=== PATIENT | female | born 1980 | race Caucasian/White ===

== ENCOUNTER 2019-01-04 07:45 | Emergency (ER) | payer OTHER, SELFPAY ==
[2019-01-04 07:46] VITALS: BP 158/87; PULSE 92; RESP 17; TEMP 36.5; O2SAT 98; BMI 40.3
--- NOTE | 2019-01-04 08:04 | RAD_ITS ---
STUDY: X-RAY - RIGHT HAND, ATTENTION INDEX FINGER REASON FOR EXAM: Female, 38 years old. Pain following injury. TECHNIQUE: 3 view(s) of the finger were obtained. COMPARISON: None. FINDINGS: Normal metacarpal head. Normal metacarpophalangeal joint. Normal proximal phalanx. Normal middle phalanx. Normal distal phalanx. Normal proximal interphalangeal joint. Normal distal interphalangeal joint. A thin oblique foreign body is seen in the soft tissues overlying the tuft of the distal phalanx of the index finger along the ulnar aspect. RAD/Finger(s) Min 2 Views IMPRESSION: Small radiopaque foreign body as described. Electronically Signed: Earnest Morataya, at 8:49 EDT , Service support ,
--- NOTE | 2019-01-04 08:17 | ED.DCSUM_ITS ---
- ER Visit Summary Date of Service: 01/04/19 Chief Complaint: Right index finger injury History of Present Illness: The patient is a 38 F who presents with injury to her right index finger that occurred earlier this morning. Patient was at work when her finger was crushed between a suction container and IV pole. Patient was able to finish her shift at work and then came to the emergency department for evaluation. Patient states the pain is over the distal phalanx of the right index finger. Patient states her pain is worse with hanging in a dependent position and with palpation. Patient denies any paresthesias or weakness. Patient states her pain improves with elevation. Physical Examination: Vital signs are stable. Patient is afebrile. Patient is in no acute distress. Musculoskeletal exam reveals tenderness, edema, and mild ecchymosis over the distal phalanx of the right index finger. There is no bony crepitance or step-off. There is no deformity noted. Range of motion was slightly limited in flexion of the DIP joint secondary to pain. Sensation was intact light touch in all digits. Capillary refill is less than 2 seconds in all digits. Test Results: X-rays of the right index finger were obtained. There is a foreign body noted in the soft tissues of the distal phalanx of the right index finger. There is no acute fracture. Emergency Department Course and Treatment: Patient was placed in AlumaFoam splint. Patient was instructed to ice and elevate the right index finger. Patient was instructed to follow-up with her primary care physician or [facility] in 7 to 10 days. Patient understood and was agreeable with plan. All questions were answered. Disposition: Discharge home Impression: 1. Foreign body right index finger 2. Crush injury right index finger This note was generated with [employer] software. It may contain incorrect words, spelling, and punctuation that were not noted in review of the chart prior to signing ED Disposition - Plan for ED Patient: Disposition: Home or Assisted Living Diagnosis: Superficial foreign body of right index finger, initial encounter, Crushing injury of right index finger, initial encounter Instructions: CRUSH INJURY, Hand/Finger, FOREIGN BODY, Soft Tissue [Removed] Referrals: NOT,DEFINED [NON-STAFF] - [facility] [GROUP OF PHYSICIANS] - 5-7 Days
[2019-01-04] MEDS: Diphth,Pertuss(Acell),Tet Vac 0.5 ML Vial IM (09:14)
[2019-01-04 09:18] VITALS: BP 127/94; PULSE 80; RESP 16
[2019-01-04] MEDS: BACITRACIN 15 GM Tube 1 APPLIC TOPICAL (10:57)
== END 2019-01-04 10:45 | disposition home or self-care (01) ==
PROVIDERS: Emergency Provider Emergency Medicine
DX: S60.450A Superficial foreign body of right index finger, initial encounter (principal); X58.XXXA Exposure to other specified factors, initial encounter; Y93.89 Activity, other specified; Y92.239 Unspecified place in hospital as the place of occurrence of the external cause; Y99.0 Civilian activity done for income or pay
CPT/HCPCS: 73140; 90715; 99283

== ENCOUNTER 2019-03-19 20:16 | Emergency (ER) | payer OTHER, SELFPAY ==
[2019-03-19 20:16] VITALS: BP 149/84; PULSE 99; RESP 16; TEMP 36.4; O2SAT 100; BMI 39.4
--- NOTE | 2019-03-19 21:28 | ED.DCSUM_ITS ---
- ER Visit Summary Date of Service: 03/19/19 Chief Complaint: Sore throat History of Present Illness: The patient is a 38 F presenting with sore throat. Patient states this started today. She has painful swallowing but no difficulty swallowing. She has had subjective fever. She took Tylenol prior to arrival. She denies rhinorrhea, cough, other complaints. She has had strep throat in the past and feels similar. Physical Examination: Vitals are stable. Patient is afebrile. Alert no acute distress. HEENT exam pharyngeal erythema, no exudate. Uvula is midline. Neck is supple. No meningismus Lungs are clear and equal bilaterally. Heart is regular rate and rhythm. Extremities are unremarkable. Skin is warm and dry. No rash No focal neurologic deficit. Remainder of exam is unremarkable. Emergency Department Course and Treatment: Rapid strep is negative. Patient was given Decadron. Advised to follow-up with Dr. Melendez on-call for no doctor. Advised return to the ED for worsening complaints. Disposition: Discharge home Impression: Pharyngitis This note was generated with [employer] dictation software. It may contain incorrect words, spelling, and punctuation that were not noted in review of the chart prior to signing ED Disposition - Plan for ED Patient: Instructions: PHARYNGITIS, Viral Referrals: Obi Melendez DO [NON CLINICAL AFFILIATE] -
--- NOTE | 2019-03-19 22:17 | ED.DEP ---
ED Disposition - Plan for ED Patient: Instructions: PHARYNGITIS, Viral Referrals: Obi Melendez DO [NON CLINICAL AFFILIATE] -
[2019-03-19] MEDS: dexAMETHasone 4 MG Tablet PO (22:28)
[2019-03-19 22:33] VITALS: RESP 16
--- NOTE | 2019-03-19 22:33 | ED.RN ---
REVIEWED D/C INSTRUCTIONS, FOLLOW UP CARE, AND S/S THAT WOULD WARRANT A RETURN TO THE ED WITH PT. PT VERBALIZED AN UNDERSTANDING AND DENIES FURTHER QUESTIONS FOR THIS RN. PT SKIN P/W/D, RESP EVEN AND UNLABORED, PT A&O X 3, NO DISTRESS NOTED. PT AMBULATED OUT OF ED, GAIT STEADY.
== END 2019-03-19 22:35 | disposition home or self-care (01) ==
PROVIDERS: Emergency Provider Emergency Medicine
DX: J02.9 Acute pharyngitis, unspecified (principal)
CPT/HCPCS: 87880; 99283

== ENCOUNTER → 2020-04-20 09:06 | Outpatient (CLI) | payer OTHER, SELFPAY ==
--- NOTE | 2020-04-20 09:07 | RAD_ITS ---
STUDY: X-RAY - RIGHT FOOT CLINICAL: Female, 39 years old. Right lateral side foot pain TECHNIQUE: 3 view(s) of the foot. COMPARISON: None. FINDINGS: Normal talus, calcaneus, and tarsal bones. Normal visualized subtalar, talonavicular, calcaneocuboid, tarsal and tarsometatarsal articulations. There is flattening of the head of the third metatarsal most likely secondary to old injury. Normal metatarsophalangeal joint of the great toe. Normal tibial and fibular sesamoid bones. Normal interphalangeal joint of the great toe. Normal phalanges of the great toe. Normal second through fifth metatarsophalangeal joints. Normal interphalangeal joints and phalanges of the lesser toes. The soft tissue structures are unremarkable. RAD/Foot min 3 Views IMPRESSION: There is flattening of the head of the third metatarsal most likely secondary to an old injury. Electronically Signed: Earnest Morataya, at 9:52 EST , Service support ,
== END ==
PROVIDERS: Referring Provider Physician Assistant Surgical; Visit Provider Physician Assistant Surgical
DX: S96.911A Strain of unspecified muscle and tendon at ankle and foot level, right foot, initial encounter (principal)
CPT/HCPCS: 73630

== ENCOUNTER 2021-04-10 12:46 | Outpatient (CLI) | payer OTHER, SELFPAY ==
[2021-04-10 13:03] VITALS: BP 134/86; PULSE 78; RESP 16; TEMP 36.8; O2SAT 99; BMI 41.1
[2021-04-10 14:05] VITALS: BP 94/67; PULSE 72; RESP 16; TEMP 36.6; O2SAT 100
[2021-04-10 15:06] VITALS: BP 130/89; PULSE 77; RESP 16; TEMP 37.1; O2SAT 100
== END 2021-04-10 15:07 | disposition home or self-care (01) ==
LOC: MS3OUT 12:46 → MS3 12:47
PROVIDERS: Referring Provider Nurse Practitioner Adult Health; Visit Provider Nurse Practitioner Adult Health
DX: Z23 Encounter for immunization (principal); U07.1 COVID-19
CPT/HCPCS: J7050; M0245; Q0245

== ENCOUNTER 2021-09-27 03:49 | Emergency (ER) | payer OTHER, SELFPAY ==
[2021-09-27 03:50] VITALS: BP 185/95; PULSE 101; RESP 18; TEMP 37; O2SAT 98; BMI 44.1
--- NOTE | 2021-09-27 03:58 | EKG12_ITS ---
Test Reason : SOB Blood Pressure : / mmHG Vent. Rate : 082 BPM Atrial Rate : 082 BPM P-R Int : 142 ms QRS Dur : 076 ms QT Int : 370 ms P-R-T Axes : 060 015 036 degrees QTc Int : 432 ms Normal sinus rhythm Normal ECG Confirmed by MARVEL MCLEOD, LARA ([id number]), features editor EMMANUEL ORR ([id number]) on 10/01/2021 8:51:04 AM Referred By: EDMAR Confirmed By:LARA GRIER MD
--- NOTE | 2021-09-27 03:58 | RAD_ITS ---
STUDY: X-RAY CHEST REASON FOR EXAM: Female, 41 years old. sob TECHNIQUE: AP portable at 4:20 AM. COMPARISON: None. FINDINGS: LUNGS: No consolidation. No pneumothorax. MEDIASTINUM: Prominent right paratracheal soft tissue likely vascular exaggerated by patient rotation. CARDIAC SILHOUETTE: Not enlarged. BONES AND SOFT TISSUES: No acute abnormalities. RAD/Chest 1 View (Portable) IMPRESSION: Negative portable chest x-ray. Electronically Signed: Michelle Anderson MD at 4:51 EDT ,
--- NOTE | 2021-09-27 03:59 | EDS_ITS ---
HPI History of Present Illness Chief Complaint: Cough Informant: patient Onset/Context/Timing Onset: Weeks Context: Gradual Onset Current Severity: Moderate Maximum Severity: Moderate Narrative Narrative: Patient presents secondary to generalized fatigue along with chest heaviness, shortness of breath, cough for the past 2 weeks. She will randomly have episodes of nausea and vomiting as well. No fever or chills. She had COVID in April 2021. She states since that time she feels that she gets sick very easily. She did test negative for COVID earlier this week. [facility] Medical History History of COVID-19 Allergy/AdvReac Type Severity Reaction Status Date / Time No Known Allergies Allergy Verified 05/01/21 17:25 Family History Mother Breast cancer Thyroid disorder Father Hypertension Surgical History plantar fasciotomy Social History Smoking Status: Never smoker ROS ROS ED Constitutional Constitutional ED: Denies chills or fever(s) Eyes Eyes: Denies change in vision ENT ENT ED: Denies sore throat Cardiovascular Cardiovascular: Reports chest pain and other Details: Chest heaviness Respiratory/Chest Respiratory/Chest: Reports cough, dyspnea and sputum Gastrointestinal Gastrointestinal: Reports nausea and vomiting; Denies abdominal pain or diarrhea Genitourinary Genitourinary ED: Denies dysuria Musculoskeletal Musculoskeletal: Denies back pain Integumentary Denies rash Neurologic Neurologic: Denies headache(s) Allergic/Immunologic Allergic/Immunologic ED: Denies urticaria EXAM Physical Exam Const Vital Signs: 09/27/21 03:50 09/27/21 05:28 Temperature 98.6 F Temperature Source Oral Pulse Rate 101 H 88 Respiratory Rate 18 18 Blood Pressure 185/95 H 141/80 H Blood Pressure Mean 125 100 Pulse Ox 98 99 Oxygen Delivery Method Room Air Room Air Positive well nourished and well developed General Appearance ED: well developed HEENT Reports moist mucous membranes Eyes PERRL and EOMs intact bilaterally Neck supple Chest Wall inspection of chest normal and palpation of chest normal Resp normal respiratory effort and clear to auscultation bilaterally Cardio regular rate and regular rhythm GI non-tender Auscultation: hypoactive bowel sounds Palpation: soft Extremity normal to inspection Neuro oriented x3 Sensorium / Orientation: alert Psych mental status grossly normal Skin no rashes or lesions noted MDM MDM MDM Narrative Medical decision making narrative: 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 EKG, chest x-ray, lab work obtained. Lab Data Attestation: I reviewed the patient's lab results. Labs: Laboratory Results - last 24 hr 09/27/21 09/27/21 09/27/21 03:50 03:50 03:50 WBC 9.4 RBC 4.56 Hgb 13.5 Hct 40.5 MCV 88.8 MCH 29.6 MCHC 33.3 RDW Std Deviation 42.5 RDW Coeff of Shanique 13.2 Plt Count 342 MPV 10.4 Immature Gran % (Auto) 0.400 Neut % (Auto) 58.4 Lymph % (Auto) 33.6 [place] % (Auto) 6.1 Eos % (Auto) 1.2 Baso % (Auto) 0.3 Absolute Neuts (auto) 5.5 Absolute Lymphs (auto) 3.17 Nucleated RBC % 0 D-Dimer Quant (PE/DVT) 0.58 H* Sodium 138 Potassium 3.3 L Chloride 104 Carbon Dioxide 28.0 Anion Gap 6 BUN 10 Creatinine 1.01 Estim Creat Clear Calc 63.94 Est GFR (MDRD) Af Amer 78 Est GFR (MDRD) Non-Af 65 BUN/Creatinine Ratio 9.9 L Glucose 128 H Calcium 8.6 Troponin I High Sens 4 B-Natriuretic Peptide Serum , Qual 09/27/21 09/27/21 03:50 03:50 WBC RBC Hgb Hct MCV MCH MCHC RDW Std Deviation RDW Coeff of Shanique Plt Count MPV Immature Gran % (Auto) Neut % (Auto) Lymph % (Auto) [place] % (Auto) Eos % (Auto) Baso % (Auto) Absolute Neuts (auto) Absolute Lymphs (auto) Nucleated RBC % D-Dimer Quant (PE/DVT) Sodium Potassium Chloride Carbon Dioxide Anion Gap BUN Creatinine Estim Creat Clear Calc Est GFR (MDRD) Af Amer Est GFR (MDRD) Non-Af BUN/Creatinine Ratio Glucose Calcium Troponin I High Sens B-Natriuretic Peptide 6.8 Serum , Qual NEGATIVE Radiography Chest X-Ray - ED: 1 View, Read by ED Physician, Normal, Heart, Lungs and Med iastinum Diagnostic Testing: Clinical Impression(s) from Imaging Studies Chest X-Ray 09/27/21 03:58 IMPRESSION: Negative portable chest x-ray. Electronically Signed: Michelle Anderson MD at 4:51 EDT , Chest CTA 09/27/21 04:30 IMPRESSION: No evidence of pulmonary emboli. No consolidation. Electronically Signed: Michelle Anderson MD at 5:28 EDT , EKG Initial EKG: Attestation: I personally reviewed and interpreted this EKG as follows: Interpretation: Sinus Rhythm (Sinus 82 with no acute ischemia.) Treatment and Re-Evaluation Narrative: Lab work reveals normal white count with no left shift. Chemistry studies reveal mildly low potassium at 3.3. This is replaced orally. Renal function is normal. BNP and troponin are normal. D-dimer slightly elevated at 0.58. Patient did undergo CTA of the chest which reveals no evidence of PE or consolidation. Test results discussed with her. Supportive care is recommended. Without fever or white count I do not believe she has a bacterial bronchitis or infection that would require antibiotics. We discussed potentially trying Mucinex or Claritin to see if this helps her symptoms. Return instructions are provided. Discharge Plan Triage Chief Complaint: Cough ED Provider: Anaid Yuen Dx/Rx/DC Orders Clinical Impression: Viral syndrome Instructions: ED Viral Syndrome (Adult) Primary Care Provider: Care Physician,No Primary Referrals: Care Physician,No Primary [Primary Care Provider] - Disposition Disposition: Home, Self Care
[2021-09-27] MEDS: Ondansetron 4 MG/2 ML Vial IV (04:03)
[2021-09-27 04:14] LABS: Absolute Lymphocyte Count 3.17 X10^3/uL (0.83-4.51); Absolute Neutrophil Count 5.5 X10^3/uL (2.0-7.7); Basophil# 0.03 X10^3/uL; Basophil% 0.3 % (0-1); Eosinophil# 0.11 X10^3/uL; Eosinophils% 1.2 % (0-5); Hematocrit 40.5 % (37-47); Hemoglobin 13.5 g/dL (12.0-15.0); Lymphocyte # 3.17 X10^3/ul (0.83-4.51); Lymphocyte % 33.6 % (19-41); Mean Corp Hgb Conc 33.3 g/dL (32-36); Mean Corpuscular Hgb 29.6 pg (27.0-32.0); Mean Corpuscular Volume 88.8 fL (81-99); Mean Platelet Vol. 10.4 fl (6.2-12.0); Monocyte# 0.58 X10^3/uL; Monocyte% 6.1 % (0-10); NRBC Flagged by Analyzer 0 % (0-5); Neutrophil # 5.51 X10^3/uL (2.7-7.7); Neutrophil % 58.4 % (47-70); Platelet Count 342 K/mm3 (150-450); RBC Distribution Width CV 13.2 % (11.6-14.6); RBC Distribution Width SD 42.5 fl (35.1-43.9); Red Blood Count 4.56 M/mm3 (4.2-5.4); White Blood Count 9.4 K/mm3 (4.4-11.0)
[2021-09-27 04:27] LABS: Anion Gap 6 (5-15); BUN 10 mg/dL (7-18); BUN/Creat Ratio 9.9 RATIO (10-20); Calcium,Total 8.6 mg/dL (8.5-10.1); Chloride 104 mmol/L (98-107); Creatinine, Serum 1.01 mg/dL (0.55-1.02); EST Glomerular Filtration Rate 65 mL/min (>60); Est Glom Filt Rate - Afr Amer 78 mL/min (>60); Estimated Creatinine Clearance 63.94 ml/min; Glucose 128 mg/dL (74-106); Potassium 3.3 mmol/L (3.5-5.1); Sodium Level 138 mmol/L (136-145); Troponin-I HS 4 pg/mL (3.0-54.0)
[2021-09-27 04:29] LABS: D-Dimer Quantitative (DVT/PE) 0.58 FEU/ug/m (0.27-0.49)
--- NOTE | 2021-09-27 04:30 | CT_ITS ---
STUDY: CTA CHEST REASON FOR EXAM: Female, 41 years old. sob, elevated d-dimer RADIATION DOSAGE (If Supplied By Facility): CTDIvol = ( 17.42 ) mGy, DLP = ( 512.55 ) mGycm TECHNIQUE: The examination was performed with the intravenous administration of IV 100mL Isovue-370. Post-processing of the angiographic images was performed, with multiplanar reformation and 3D reconstruction. Individualized dose optimization techniques were used for this CT. COMPARISON: None. FINDINGS: LUNGS: No consolidation. PLEURA: No pleural effusion. No pneumothorax. PULMONARY VESSELS: No pulmonary emboli identified. MEDIASTINUM: Unremarkable. HEART: Not enlarged. AORTA/GREAT VESSELS: Thoracic aorta is normal caliber. No aneurysm or dissection. ESOPHAGUS: Small hiatal hernia. UPPER ABDOMEN: No acute findings. BONES/SOFT TISSUES: No acute findings. OTHER: None. CT/CTA Chest W/WO Contrast IMPRESSION: No evidence of pulmonary emboli. No consolidation. Electronically Signed: Michelle Anderson MD at 5:28 EDT ,
[2021-09-27 04:44] LABS: BNP,B-Type NATRIURETIC PEPTIDE 6.8 pg/mL (0-100)
[2021-09-27 04:46] LABS: Internal QC Validated? YES +Cl - CLEAR BKGD; Pregnancy, Serum, hCG Quali. NEGATIVE Negative
[2021-09-27] MEDS: Potassium Chloride Oral Tablet 20 MEQ 40 MEQ PO (04:46)
[2021-09-27 05:28] VITALS: BP 141/80; PULSE 88; RESP 18; O2SAT 99
[2021-09-27 05:39] VITALS: BP 152/82; PULSE 92; RESP 15; O2SAT 98
[2021-09-27 05:44] VITALS: BP 152/82; PULSE 98; RESP 16; O2SAT 99
== END 2021-09-27 05:45 | disposition home or self-care (01) ==
PROVIDERS: Emergency Provider Emergency Medicine; Visit Provider Emergency Medicine
DX: B34.9 Viral infection, unspecified (principal); R06.02 Shortness of breath; R05.9 Cough, unspecified; Z86.16 Personal history of COVID-19
CPT/HCPCS: 71045; 71275; 80048; 83880; 84484; 84703; 85025; 85379; 93005; 96374; 99283; Q9967; A4216; J2405

== ENCOUNTER 2022-05-07 09:00 | Outpatient (RCR) | payer OTHER, SELFPAY ==
--- NOTE | 2022-03-04 12:03 | HP.PTEVAL_ITS ---
Patient's Visit Information TRUPTI MIRELES is a 41 year old F referred to Physical Therapy by Dr. Garry Zuluaga DPM with a diagnosis of L ACHILLES TENDONITIS.. Date of Evaluation: 03/04/22 Physical Therapist: Diane Chin PT, Cert MDT - Visit Plan Frequency: 2-3x /Week Duration: 6-8 WKS Plan: GAIT TRAINING. RIGHT LE ROM, STRETCHING AND STRENGTHEING TO HELP MEET SET GOALS. LEFT CALF STICK ROLL OUT. L ACHILLES US. CASE CONFERENCE WITH SAMY VÁSQUEZ. TRANSFER OF CARE TO CE. PATIENT AGREEABLE. 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 OFF WORK FOR THIS SINCE FEB 20 2022. TENTATIVE RTW IN 2 WEEKS WITH LIMITATIONS. FMLA RUNS OUT 03/22/22. Present symptoms: L HEEL PAIN. NO NUMBNESS OR TINGLING. Present since: ABOUT A YEAR AGO. Pain Scale: WORST 5/10, LEAST 0/10. Currently: 07/18. Commenced as a result of: NO APPARENT REASON. Symptoms at onset: SAME. Worse: WALKING, STEPS, STRETCHES. Better: NON- WEIGHT BEARING. NEUTRAL ANKLE POSITION. Disturbed sleep: NO. Previous history/Previous treatment: NO PRIOR HX WITH THIS FOOT. Treatment this episode: BOOT. WAS IN THE BOOT X 4 WEEKS WHEN UP AND ABOUT THEN STARTED TO WEAN OUT OF IT ABOUT 2 WEEKS AGO - 60% BETTER IN THE BOOT BUT ONLY ABOUT 40% BETTER OUT OF THE BOOT NOW COMPARED TO BEFORE THE BOOT. PREDNISONE BEFORE THE BOOT WITHOUT BENEFIT. Gait: A LITTLE BIT OF PAIN IN THE BOOT - IT RUBS THE BACK OF HEEL - BUT KEEPS ME WALKING MORE NORMAL. WALKING OUT OF THE BOOT STILL HAS TO WALK PRETTY FLAT FOOT. BENDING FOOT PROVOKES PAIN. VERY FLAT FOOT ON STEPS. NO AD'S. BOWEL OR BLADDER DYSFUNCTION - NO. Accidents: NO. Unexplained weight loss: NO. Imaging: FOOT X-RAY JAN 2022. PMH/Recent major surgery: RIGHT PLANTARFASCIOTOMY A LONG TIME AGO. PLOF (Prior Level of Function): UNLIMITED PRIOR TO LEFT ANKLE PROBLEM STARTING ABOUT A YEAR AGO. OTHER: PATIENT REPORTS INITIAL DR. ZULUAGA TOLD HER SHE MIGHT NEED SURGERY BECAUSE A PIECE OF THE BONE SPUR IS BROKEN OFF. - Objective THIS PATIENT AMBULATES INDEP'LY INTO PT TODAY WEARING A LEFT FOOT AND NOT USING ANY ASSISTIVE DEVICES. SHE REPORTS SHE HAS BEEN WALKING AROUND HER HOUSE WITHOUT BOOT OR SHOE. SHE HAS DECREASED HEEL STRIKE AND TOE OFF PHASES OF GAIT WITHOUT THE BOOT AND LIMPS ON THE RIGHT LE. SHE HAS SWELLING AND TENDERNESS OF THE LEFT ANKLE AND ESPECIALLY THE ACHILLES TENDON AND AT THE insertion. RIGHT LE ROM AND STRENGTH IS WFL. LEFT HIP AND KNEE STRENGTH AND ROM IS WFL. GOOD AROM OF RIGHT TOES. RIGHT ANKLE DORSIFLEXION 3-/5, PLANTAR FLEXION 3+/5, INV 3+/5, EVERSION 3+/5. AROM R ANKLE DORSIFLEXION TO NEUTRAL, PLANTAR FLEX 51 DEG. R INVERSION AND EVERSION ROM IS WFL BUT C/O PAIN WITH TESTING. PATIENT REPORTS SHE HAS NOT BEEN GIVEN ANY HOME EX'S. TREATMENT: THER ACT - HOME EX INSTRUCTION FOR CALF STRETCHING 3 TIMES A DAY EITHER IN STANDING WITH WALL LEAN STRETCH OR LONG SITTING TOWEL STRETCH X 3 REPS 45 SEC EA. PATIENT DEMONSTRATED AND TOLERATED BOTH EX'S WELL IN THE CLINIC TODAY. INSTRUCTIONS IN precautions SUCH PROVOKING SHARP SHOOTING PAIN. - Balance/Special Test Scores Lower Extremity Functional Score: 60 - Goals Goal 1:: NORMALIZE GAIT IN NORMAL SHOE ON LEVEL SURFACES AND UP AND DOWN STEPS. Goal Time Frame: 6-8 Weeks Goal 2:: INCREASE FUNCTION ROM OF RIGHT ANKLE TO EASE WALKING. Goal Time Frame: 6-8 Weeks Goal 3:: INCREASE FUNCTIONAL STRENGTH OF RIGHT ANKLE TO ASSIST IN RETURN TO WORK FULL DUTY. Goal Time Frame: 6-8 Weeks Goal 4:: PATIENT WILL BE INDEP WITH A HEP FOR CONTINUED IMPROVEMENT ONCE FORMAL PHYSICAL THERAPY CONCLUDES. Goal Time Frame: 6-8 Weeks - Anticipated Interventions Patient/Client Instruction: Educate patient on: Condition, Plan of Care, Risk Factors For the Purpose of:: To improve self management Therapeutic Exercise to Include: Strength training, Balance training, Flexibilty training, Gait and locomotor training, Neuromotor development For the Purpose of:: To decrease pain, To increase ROM, To improve muscle performance and motor function, To increase tolerance to activi ty/condition/position, To improve ability of physical actions for home/community/work/leisure, To improve gait and locomotor functions Ultrasound (thermal/non thermal): Yes For the Purpose of:: To improve nutrient delivery to tissue Thank you for the opportunity to evaluate your patient. For Medicare and Medicare HMO plans, please review the plan of care and approve it. It will need to be FAXED BACK to us at [phone] for Medicare purposes. For Medicare only, by signing this I certify the plan of care. Please let me know if there are questions or concerns regarding this plan of care. Physician Signature: Date:
--- NOTE | 2022-03-26 10:38 | HP.PTREVAL ---
Dr. Garry Zuluaga, DPM, It has been my pleasure to treat TRUPTI MIRELES over the last 10 visits for L ACHILLES TENDONITIS.. Please see the progress note below for an update on the physical therapy plan of care! Subjective: Pt reports she worked all night last night. Objective/Function: L ankle pain 3/10, increases to 6/10 at worst. L ankle ROM: DF= 0, PF= 60, INV= 30, Ever= 10 degrees. L ankle MMT: PF= 3+/5, all other measurements 4/5 throughout. Pt is progressing well at this time. Plan Plan: Cont with ECC ex's and manual therapy/Modalities as amaury Balance/Gait/Functional tests - Balance/Special Test Scores Lower Extremity Functional Score: 64 Goals Goal 1:: NORMALIZE GAIT IN NORMAL SHOE ON LEVEL SURFACES AND UP AND DOWN STEPS. Goal Time Frame: 6-8 Weeks Goal Progress: Progressing Goal 2:: INCREASE FUNCTION ROM OF RIGHT ANKLE TO EASE WALKING. Goal Time Frame: 6-8 Weeks Goal Progress: Progressing Goal 3:: INCREASE FUNCTIONAL STRENGTH OF RIGHT ANKLE TO ASSIST IN RETURN TO WORK FULL DUTY. Goal Time Frame: 6-8 Weeks Goal Progress: Progressing Goal 4:: PATIENT WILL BE INDEP WITH A HEP FOR CONTINUED IMPROVEMENT ONCE FORMAL PHYSICAL THERAPY CONCLUDES. Goal Time Frame: 6-8 Weeks Goal Progress: Progressing Anticipated Interventions Patient/Client Instruction: Educate patient on: Condition, Plan of Care, Risk Factors For the Purpose of:: To improve self management Therapeutic Exercise to Include: Strength training, Balance training, Flexibilty training, Gait and locomotor training, Neuromotor development For the Purpose of:: To decrease pain, To increase ROM, To improve muscle performance and motor function, To increase tolerance to activity/condition/position, To improve ability of physical actions for home/community/work/leisure, To improve gait and locomotor functions Ultrasound (thermal/non thermal): Yes For the Purpose of:: To improve nutrient delivery to tissue Please do not hesitate to contact me at [phone] by phone or if you have questions or concerns regarding this new plan of care! Sincerely, Yasir Mcarthur, PT, ATC
--- NOTE | 2022-05-07 09:35 | HP.PTREVAL_ITS ---
Dr. Garry Zuluaga, DPM, It has been my pleasure to treat TRUPTI MIRELES over the last 22 visits for L ACHILLES TENDONITIS.. Please see the progress note below for an update on the physical therapy plan of care! Subjective: Pt reports no sig changes at this time. Scheduled for an MRI this Thursday. Objective/Function: L achilles pain ranges from 3-6/10. Pt contijues to display a limp while ambulating on her L LE. L ankle DF= 0. Pt has made very slow improvements Plan Plan: Hold until after MRI Balance/Gait/Functional tests - Balance/Special Test Scores Lower Extremity Functional Score: 64 Goals Goal 1:: NORMALIZE GAIT IN NORMAL SHOE ON LEVEL SURFACES AND UP AND DOWN STEPS. Goal Time Frame: 6-8 Weeks Goal Progress: Progressing Goal 2:: INCREASE FUNCTION ROM OF LEFT ANKLE TO EASE WALKING. Goal Time Frame: 6-8 Weeks Goal Progress: Progressing Goal 3:: INCREASE FUNCTIONAL STRENGTH OF LEFT ANKLE TO ASSIST IN RETURN TO WORK FULL DUTY. Goal Time Frame: 6-8 Weeks Goal Progress: Progressing Goal 4:: PATIENT WILL BE INDEP WITH A HEP FOR CONTINUED IMPROVEMENT ONCE FORMAL PHYSICAL THERAPY CONCLUDES. Goal Time Frame: 6-8 Weeks Goal Progress: Goal Met Anticipated Interventions Patient/Client Instruction: Educate patient on: Condition, Plan of Care, Risk Factors For the Purpose of:: To improve self management Therapeutic Exercise to Include: Strength training, Balance training, Flexibilty training, Gait and locomotor training, Neuromotor development For the Purpose of:: To decrease pain, To increase ROM, To improve muscle performance and motor function, To increase tolerance to acti vity/condition/position, To improve ability of physical actions for home/community/work/leisure, To improve gait and locomotor functions Ultrasound (thermal/non thermal): Yes For the Purpose of:: To improve nutrient delivery to tissue Please do not hesitate to contact me at [phone] by phone or if you have questions or concerns regarding this new plan of care! Sincerely, Yasir Mcarthur, PT, ATC
== END 2022-05-07 19:00 | disposition home or self-care (01) ==
LOC: PT 09:00
PROVIDERS: Referring Provider Podiatrist; Visit Provider Podiatrist
DX: M76.62 Achilles tendinitis, left leg (principal)
CPT/HCPCS: 97110; 97140; 97161; 97164; 97530

== ENCOUNTER → 2022-05-10 | Outpatient (CLI) | payer OTHER, SELFPAY ==
--- NOTE | 2022-05-10 08:12 | MRI_ITS ---
STUDY: MRI LEFT ANKLE WITHOUT CONTRAST REASON FOR EXAM: Female, 41 years old. ACHILLES TENDONITIS TECHNIQUE: Standardized fat and water weighted pulse sequences were obtained in all 3 orthogonal planes. COMPARISON: None. FINDINGS: Normal subcutis adipose space. Normal posterior tibialis tendon. Normal flexor digitorum longus tendon. Normal flexor hallucis longus tendon. Normal peroneus longus and brevis tendons. Normal tibialis anterior tendon. Normal extensor hallucis longus tendon. Normal extensor digitorum longus tendons. There is tendinosis of the Achilles tendon with diffuse tendon thickening, but without a partial, intratendinous, or full-thickness tear. Normal plantar fascia. There is a plantar calcaneal spur, but without cancellous marrow edema. Normal intrinsic muscles of the rearfoot. Normal distal tibiofibular syndesmotic ligamentous complex. Normal lateral ligamentous complex. Normal subtalar ligaments and sinus tarsi. Normal deltoid ligamentous complexes. Normal plantar calcaneonavicular (spring) ligament. Normal tibiotalar articulation. Normal talar dome. Normal subtalar articulations. Normal talonavicular articulation. Normal calcaneocuboid articulation. Normal navicular-cuneiform articulations. MRI/Lower Ext Joint Only (Routine) IMPRESSION: Mild insertional Achilles tendinitis. Electronically Signed: Jorge Bruno MD at 13:17 EST ,
== END | disposition home or self-care (01) ==
LOC: MRI 07:46
PROVIDERS: Referring Provider Podiatrist; Visit Provider Podiatrist
DX: M76.62 Achilles tendinitis, left leg (principal)
CPT/HCPCS: 73721

== ENCOUNTER → 2022-08-19 | Outpatient (CLI) | payer OTHER, SELFPAY ==
[2022-08-19 18:56] LABS: ALB/GLOB Ratio 1.1 RATIO (0.9-2.4); AST(SGOT) 25 U/L (15-37); Alanine Aminotransfer ALT/SGPT 33 U/L (13-56); Albumin, Serum 3.6 g/dL (3.2-5.0); Alkaline Phosphatase 106 U/L (45-117); Anion Gap 7 (5-15); BUN 16 mg/dL (7-18); BUN/Creat Ratio 19.8 RATIO (10-20); Calcium,Total 8.8 mg/dL (8.5-10.1); Chloride 109 mmol/L (98-107); Creatinine, Serum 0.81 mg/dL (0.55-1.02); EST Glomerular Filtration Rate 83 mL/min (>60); Est Glom Filt Rate - Afr Amer 101 mL/min (>60); Globulin 3.4 g/dL (2.2-4.2); Glucose 124 mg/dL (74-106); Potassium 3.5 mmol/L (3.5-5.1); Sodium Level 140 mmol/L (136-145)
== END | disposition home or self-care (01) ==
LOC: MFPLAB 15:07
PROVIDERS: Visit Provider Family Medicine
DX: Z01.818 Encounter for other preprocedural examination (principal)
CPT/HCPCS: 36415; 80053

== ENCOUNTER 2022-08-29 06:43 | Day surgery (SDC) | payer OTHER, SELFPAY ==
[2022-08-29] VITALS (10 sets, daily range): BP systolic 136–153; BP diastolic 84–96; PULSE 66–79; RESP 16; TEMP 36.1–36.8; O2SAT 90–99; BMI 42.3
[2022-08-29 07:19] LABS: Internal QC Validated? YES +Cl - CLEAR BKGD; Pregnancy, Urine Negative Negative
[2022-08-29] MEDS: Lactated Ringers 1,000 ML 15 ML IV (07:46)
--- NOTE | 2022-08-29 08:03 | BUR_PTH ---
PATIENT: TRUPTI MIRELES LOC: [facility] [place] U#:[id number] AGE/SX: 41/F ROOM: RE08/29/[address]: Dr. Garry Zuluaga DPM : 1980 BED: DIS: 08/29/2022 SPEC #: [id number] RECD: 08/29/22 17:10 STATUS: JESSE GRAY #: [id number] YADIEL: 08/29/22 08:[address]: Garry Zuluaga DEPT: SURGICAL PATHOLOGY RECD BY: Ysabel Owen ENTERED: 09/01/22 08:43 SP TYPE: BURSA OT DR: No Primary Care Phys Tissues: A - Bursa, NOS B - Tendon sheath, NOS C - Bone of foot, NOS Procedures: Decalcification bone/plaque Surgery Specimen Level III Surgery Specimen Level IV HEADER OPERATION: Achilles tendon detachment / debridement reattachment PRE-OP DIAGNOSIS: Achilles tendon detachment TISSUE SUBMITTED: A ? Retrocalcaneal bursa, B ? Achilles tendon, C ? Calcaneal bone MICROSCOPIC DIAGNOSIS A. Retrocalcaneal bursa, biopsy: Benign fibrofatty tissue. B. Achilles tendon, biopsy: Fibrocartilaginous, tendinous and bony tissue with reparative and reactive change. C. Calcaneal bone, excision: Osseocartilaginous tissue with reactive and reparative change. AM:jerry 09/04/2022 MICROSCOPIC DESCRIPTION Slides are reviewed. GROSS DESCRIPTION A - Received in fixative is one container labeled with the patient's name and designated retrocalcaneal bursa. The specimen consists of two irregular pieces of yellow soft tissue that in aggregate measure 2.0 x 1.4 x 0.5 cm. The entire specimen is submitted in one cassette. B - Received in fixative is one container labeled with the patient's name and designated Achilles tendon. The specimen consists of multiple pieces of marie, indurated tissue that in aggregate measure 3.0 x 2.0 x 1.0 cm. Oncology Coordinator tissue is submitted in one cassette. C - Received in fixative is one container labeled with the patient's name and designated calcaneal bone. The specimen consists of multiple pieces of bone that in aggregate measure 4.0 x 3.5 x 0.5 cm. The entire specimen is submitted in two cassettes after decalcification. / SJ:jerry 09/01/2022 TC:5 CPT: 08109 x2, 90392, 72923
--- NOTE | 2022-08-29 08:30 | RAD_ITS ---
STUDY: X-RAY - LEFT CALCANEUS REASON FOR EXAM: Female, 41 years old. The bright reattachment of the Achilles tendon the OR. TECHNIQUE: 10 intraoperative view(s) of the calcaneus were obtained. 25.2 seconds of fluoroscopy. Exposure of 0.36 mGy. COMPARISON: MRI of the left ankle, May 10, 2022. FINDINGS: Fluoroscopic guidance was provided during the reattachment of the Achilles tendon. Please refer to the operative report for further details. RAD/Calcaneus min 2 Views IMPRESSION: Fluoroscopy provided in the OR. Electronically Signed: Zane Agosto DO at 17:27 EDT ,
[2022-08-29] MEDS: Bupivacaine 0.25% 30 ML Vial (12:04)
[2022-08-29] MEDS: Cefazolin 2 GM in 0.9% Normal Saline 100 ML IV (12:12)
--- NOTE | 2022-08-29 14:12 | OP.PCM_ITS ---
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 Confirmed clinically and fluoroscopically Surgeon: Garry Zuluaga scientific artist: None (pradeep covarrubias, PGYIII) Type of Anesthesia: General/Regional Special Medications: preopertive popliteal block performed Specimen's removed: 1) left retrocalcaneal bursa 2) insertional Achilles tendinosis 3) left insertional Achilles enthesophyte Drains: None Estimated Blood Loss (mL): Minimal Description of Procedure: Patient brought back to the op room and induced under general anesthesia, patient was placed on the operating table in the prone position with all osseous prominences offloaded prevent any compression neuropraxia's. Well-padded left lower extremity tourniquet was applied. Patient received popliteal block preoperatively. Left lower extremity scrubbed prepped draped using typical aseptic fashion. Once cleared by anesthesia left lower extremity was elevated exsanguinated tourniquet was inflated 300 mmHg. A direct central incision was made along the distal aspect of the Achilles from the distal one third of the Achilles tendon just distal to its insertion on the posterior Achilles this incision was made with a #15 blade through epidermis dermis into subcutaneous tissue blunt dissection was taken down to level of deep fascia and Achilles tendon any bleeders were cauterized all neurovascular structures identified and protected with blunt retraction. The Achilles tendon was then split longitudinally and dissected off the posterior Achilles medially and laterally to expose the posterior calcaneal enthesophyte and Elaine's deformity which was ultimately resected using a sagittal saw and large tear rasp. Resection was noted to be adequate intraoperatively as well as fluoroscopic guided imaging using lateral images with the foot hip in a rectus position and along with internal and external rotation of the lower extremity. Once adequate resection was noted the Achilles tendon was then debrided of all tendinosis the retrocalcaneal bursa and bone spurs as well as tendon Achilles tendon were sent to pathology for further examination. Once adequate tendinosis was debrided the tendon was then repaired using a running stitch using FiberWire was restored back to the posterior calcaneus using Arthrex speed bridge using manufactures guidelines. Once the tendon was restored was noted that calf squeeze did activate plantarflexion of the foot. There is rectus alignment of the Achilles tendon allowing for approximately 10 degrees of dorsiflexion. Tourniquet was let down total kristina rniquet time was maybe 55 minutes. Incisional site was flushed with copious amounts normal sterile saline. Deep and subcutaneous closure performed using running continuous 3-0 Vicryl on a blunt needle. Skin closure performed using simple interrupted technique with 3-0 nylon. Incisional sites was dressed with bacitracin Adaptic 4 x 4's Kerlix and a well-padded García posterior splint. Patient was transferred to PACU vital signs stable and vascular status intact all digits for further monitoring prior to discharge patient tolerated procedure and anesthesia well apparent satisfactory condition patient will maintain nonweightbearing status and follow-up in 1 week.
== END 2022-08-29 17:23 | disposition home or self-care (01) ==
LOC: SDC 06:44 → AC 06:45
PROVIDERS: Anesthesiology; Referring Provider Podiatrist; Visit Provider Podiatrist
PROC: (CPT 28899; principal; 2022-08-29 08:15)
DX: M76.62 Achilles tendinitis, left leg (principal); M77.32 Calcaneal spur, left foot; M92.62 Juvenile osteochondrosis of tarsus, left ankle; Z86.16 Personal history of COVID-19
CPT/HCPCS: 27650; 28119; 01472; 73650; 76000; 81025; 88304; 88305; 88311; J7120; J2405

== ENCOUNTER 2022-10-08 15:51 | Emergency (ER) | payer OTHER, SELFPAY ==
[2022-10-08 15:52] VITALS: BP 162/99; PULSE 95; RESP 14; TEMP 36.1; O2SAT 99
--- NOTE | 2022-10-08 16:30 | EDS_ITS ---
HPI History of Present Illness Chief Complaint: Lower Extremity Injury Narrative Narrative: 42-year-old female here with concern for left leg DVT. Notes history of recent surgery. Denies prior history of DVT. Denies chest pain or shortness of breath. Denies history of bleeding diathesis. [facility] Medical History (Updated 10/08/22 @ 16:[address] Nakul Baltazar, DO) Gastric reflux History of COVID-19 Non-smoker PONV (postoperative nausea and vomiting) Wears glasses Home Medications acetaminophen 325 mg capsule 325 mg PO Q6H PRN Pain 08/22/22 [History Last Taken Unknown] ibuprofen 200 mg tablet 200 mg PO Q6H PRN Pain 08/22/22 [History Last Taken Unknown] enoxaparin 40 mg/0.4 mL subcutaneous syringe 40 mg (0.4 mL) subcut DAILY #8 mL 08/29/22 [Rx Last Taken Unknown] oxycodone 5 mg capsule 5 mg PO Q4H PRN pain 7 days #42 caps 08/29/22 [Rx Last Taken Unknown] amoxicillin 875 mg-potassium clavulanate 125 mg tablet 1 tab PO BID 7 days #14 tabs 10/08/22 [Rx Last Taken Unknown] apixaban 5 mg (74 tabs) tablets in a dose pack (Eliquis DVT-PE Treat 30D Start) 5 mg PO BID #74 tabs 10/08/22 [Rx Last Taken Unknown] Allergy/AdvReac Type Severity Reaction Status Date / Time No Known Allergies Allergy Verified 10/08/22 15:55 Family History Mother Breast cancer Thyroid disorder Father Hypertension Surgical History plantar fasciotomy Social History Smoking Status: Never smoker ROS ROS ED ROS Narrative Constitutional: Denies fever HEENT: Denies sore throat Neck: Denies neck pain Cardiovascular: Denies chest pain, syncope Respiratory: Denies shortness of breath GI: Denies nausea vomiting or abdominal pain : Denies changes in urinary habits Musculoskeletal: Denies muscle or joint pain Neurologic: Denies numbness weakness or loss of sensation Skin denies rash EXAM Physical Exam Narrative Exam Narrative: Nursing triage notes reviewed, Vital signs reviewed Constitutional: please see mdm HENT: MMM Eyes: Pupils equal round and reactive to light, Extraocular muscles intact Neck: No stridor, no JVD, full neck ROM Lungs: Clear to auscultation, No wheezing or rales. No increased work of breathing, no conversational dyspnea, no accessory muscle use, no nasal flaring. No respiratory distress noted Heart: Regular rate and rhythm, No murmurs, No rubs and No gallops, 2+ distal pulses (radial, femoral, posterior tibial) in all extremities Abdomen: Soft, there is no tenderness, rigidity, rebound or guarding, no obvious peritoneal signs, no palpable pulsatile abdominal masses, no auscultated abdominal bruit : No CVAT Extremities: No edema Neuro: No focal neurological deficits, cranial nerves II through XII intact, 5/5 strength in all extremities. Intact sensation to light touch in all extremities, 2+ reflexes bilateral patella dens. Normal gait. No ataxia. Skin: No rash or lesions noted Const Vital Signs: 10/08/22 15:52 Temperature 97 F L Temperature Source Temporal Pulse Rate 95 Respiratory Rate 14 Blood Pressure 162/99 H Blood Pressure Mean 120 Pulse Ox 99 Oxygen Delivery Method Room Air MDM MDM MDM Narrative Medical decision making narrative: Chief Complaint: DVT External records reviewed: No prior duplex ultrasounds noted in the chart MDM: The patient was hemodynamically stable, afebrile. No chest pain or shortness of breath endorsed. Stable vitals noted. Left lower extremity was neurovascular intact did have calf tenderness. She did have a wound on the left heel which is well-healing, well vascularized without evidence of redness, purulence, fluctuance induration or excessive tenderness to palpation. I will start the patient on Eliquis (patient denied any prior history of any bleeding diathesis including intracranial hemorrhage, GI bleed). Will give first dose here and give starter pack, at least 30 days of treatment and pharmacy card. We will give antimicrobial prophylaxis for left heel wound. Factors affecting care: Recent surgery Social determinants of health: Never smoker History obtained from others: Shared decision making: I will have a discussion with the patient and or visitors regarding risk/benefits of further testing or admission. They will be made aware of of the risk/benefits inherent in this decision they will be given the opportunity to voice understanding. Consults: Pharmacy Discharge Plan Triage Chief Complaint: Lower Extremity Injury ED Provider: Nakul Baltazar Dx/Rx/DC Orders Clinical Impression: DVT (deep venous thrombosis) Instructions: Apixaban Oral tablet, DVT Dc Prescriptions: Cade Francinekwesisimi DVT-PE Treat 30D Start 5 mg (74 tabs) tablets,dose pack 5 mg PO BID Qty: 74 0RF amoxicillin-pot clavulanate 875-125 mg tablet 1 tab PO BID 7 Days Qty: 14 0RF No Action ibuprofen 200 mg Tablet 200 mg PO Q6H PRN (Reason: Pain) acetaminophen 325 mg Capsule 325 mg PO Q6H PRN (Reason: Pain) oxycodone 5 mg capsule 5 mg PO Q4H PRN (Reason: pain) 7 Days Qty: 42 0RF enoxaparin 40 mg/0.4 mL syringe 40 mg subcut DAILY Qty: 8 0RF Stand Alone Forms: ED Work / School Excuse Primary Care Provider: Care Physician,No Primary Referrals: Care Physician,No Primary [Primary Care Provider] - Activity Restrictions/Additional Instructions: Thank you for trusting us with your care today! Please take Tylenol (2 pills, 650 mg), every 6 hours as needed for pain and fever control. Please take antibiotics as prescribed and until course complete. Please call for signs of bleeding which include coughing blood, vomiting blood, vaginal bleeding, blood in your urine or stool, black stools. The signs develop please return to the emergency department immediately. If you have any head trauma even minor please return to the emergency department immediately Please return to the emergency department if you develop chest pain, shortness of breath or if you lose consciousness. Please return to the emergency department if your symptoms change or worsen. Please follow with your primary care physician for further outpatient evaluation and management. Disposition Disposition: Home, Self Care Discharge Date/Time: 10/08/22 17:09
[2022-10-08] MEDS: APIXABAN 5 MG TABLET 10 MG PO (17:03)
[2022-10-08] MEDS: Amox/Clavulanate 875 MG Tablet PO (17:03)
== END 2022-10-08 17:09 | disposition home or self-care (01) ==
PROVIDERS: Emergency Provider Emergency Medicine; Visit Provider Emergency Medicine
DX: I82.402 Acute embolism and thrombosis of unspecified deep veins of left lower extremity (principal); Z86.16 Personal history of COVID-19
CPT/HCPCS: 99283

== ENCOUNTER → 2022-10-08 | Outpatient (CLI) | payer OTHER, SELFPAY ==
--- NOTE | 2022-10-08 15:03 | VDLE_ITS ---
Reason For Study: Pain RIGHT LEFT GSV is normal. GSV is normal. CFV is compressible, spontaneous, phasic, CFV is compressible, spontaneous, phasic, competent and demonstrates normal competent, and demonstrates normal augmentation. augmentation. FV is compressible, spontaneous, phasic, FV is compressible, spontaneous, phasic, competent and demonstrates normal competent and demonstrates normal augmentation. augmentation. POP V is compressible, spontaneous, phasic, POP V is compressible, spontaneous, phasic, competent and demonstrates normal competent and demonstrates normal augmentation. augmentation. T/P Trunk is compressible. T/P Trunk is compressible. PTV is compressible. Lt GastrocV, Lt PTV, and Lt PeroV are dilated RT PerV is compressible. and non compressible consistent with acute Procedure DVT. This is a venous duplex using B-mode, color flow and spectral Doppler. Exam performed in department. A preliminary report was called and/or faxed to Mary. Took patient to ED for treatment. VL/Venous Duplex US - Jose G Extrem Interpretation Summary There is no evidence of right lower extremity deep vein thrombosis. Acute deep venous thrombosis left gastrocnemius, posterior tibial, and peroneal veins. Patent and compressible bilateral great saphenous veins Ordering Physician: Garry Zuluaga Performed By: Ashley Mendez, FAIZAN, RVT
== END | disposition home or self-care (01) ==
PROVIDERS: Referring Provider Podiatrist; Visit Provider Podiatrist
DX: M79.604 Pain in right leg (principal); L97.522 Non-pressure chronic ulcer of other part of left foot with fat layer exposed; M79.605 Pain in left leg; R22.43 Localized swelling, mass and lump, lower limb, bilateral
CPT/HCPCS: 87070; 87205; 93970

== ENCOUNTER 2022-11-24 08:00 | Outpatient (RCR) | payer OTHER, SELFPAY ==
--- NOTE | 2022-10-13 07:47 | HP.PTEVAL_ITS ---
Patient's Visit Information TRUPTI MIRELES is a 42 year old F referred to Physical Therapy by Dr. Garry Zuluaga DPM with a diagnosis of Achilles tendonitis s/p surgery for clean out bone spur 08/29. Date of Evaluation: 10/13/22 Physical Therapist: Mandeep Pimentel DPT, OCS, CSCS - Visit Plan Frequency: 3x /Week Duration: 4-6 Weeks Plan: has blood clots. 3x/week for 4-6 weeks for ... 1. ROM and stretching L ankle, (pt has blood clots and wound infection ). 2. strength and prorioception to tolerance and progression of HEP. 3. gait training and progression as allowed by doctor(pt is currently WBAT in boot again due to infecction and wound healing but surgery allows her to be FWB as wound healing tolerates. Boot currently is to protect wound) - Subjective 08/29/22 had surgery for shave bone spur at achilles. wound has not healed well and had 3 blood clots. Wound debreided last Thursday and antibitoic until Thursday. Pain in L achilles for long time prior over a year. Put in boot and has been for 6 weeks and weaned to FWB and then crutches back last week due to wound not healing. Is WBAT but is hurting form debridement so using crutches most of time. Pain is fine, Had pain at end of day 5/10 especially if on feet alot. Sleep is OK for the most part. 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 Hobbies include raising rabbits and is doing it but is hard. Has steps and gets up and down them slowly. - Pain L achilles Pain Intensity (Out of 10): 0 Pain Intensity Range: 0, 5 - Objective Walking PWB L with boot on and 2 crutches(raised the hand hold on these for her today). Mod I. Trasnfers I, Steps using R only with crutches mod I. dons and doffs boot I. Stands with tightness in l achilles and offloading L LE until cued. Hesitant but I. AROM L ankle -3 DF, 35 PF, 20 inv and 10 ev, R side is 5 DF, 55 PF, 30 inv and 18 eversion. PROM L slightly better than active numbers but lots of pulling with DF and ev in achilles area. wound is dressed and being visualize by doctor each week so not visualized today. Knee and HIp AROM B WFL. hop strength 3+ B, knees 4 B, ankle strenght L 3+ L and 4+ R. Unable to SLS L todya. Attempted one crutch walking but awkward adn dysfunctional right now due to soreness from debridement?? Unable to walk without AD today. - Balance/Special Test Scores Lower Extremity Functional Score: 44 - Goals Goal 1:: ST: AROM 4 DF and 50 PF to aid with walking and steps Goal Time Frame: 2-4 Weeks Goal 2:: Pain 0-2/10 at all times Goal Time Frame: 2-4 Weeks Goal 3:: LT: Walk without AD I in community without gait deviations Goal Time Frame: 4-6 Weeks Goal 4:: Steps reciprocally without rail Goal Time Frame: 4-6 Weeks Goal 5:: Plan to return to work Goal Time Frame: 4-6 Weeks Goal 6:: 64 score LEFS Goal Time Frame: 4-6 Weeks - Rehabilitation Potential Physical Therapy Diagnosis: Difficulties s/p achilles surgery Rehabilitation Potential: Fair - Anticipated Interventions Patient/Client Instruction: Educate patient on: Condition, Plan of Care For the Purpose of:: To decrease pain, To decrease swelling/inflammation, To increase ROM, To improve nutrient delivery to tissue, To improve muscle performance and motor function Therapeutic Exercise to Include: Strength training, Flexibilty training, Gait and locomotor training, Passive ROM, Active ROM For the Purpose of:: To decrease pain, To increase ROM, To improve nutrient delivery to tissue, To increase oxygenation perfusion, To improve muscle performance and motor function, To increase tolerance to activity/condition/position, To improve ability of physical actions for home/community/work/leisure, To improve gait and locomotor functions Manual Therapy Techniques to Include: Scar massage, Mobilization, Passive ROM For the Purpose of:: To decrease pain, To increase ROM, To improve nutrient delivery to tissue, To improve muscle performance and motor function, To improve ability to perform ADL's, To increase tolerance to activity/condition/position, To improve ability of physical actions for home/community/work/leisure, To improve gait and locomotor functions Thank you for the opportunity to evaluate your patient. For Medicare and Medicare HMO plans, please review the plan of care and approve it. It will need to be FAXED BACK to us at [phone] for Medicare purposes. For Medicare only, by signing this I certify the plan of care. Please let me know if there are questions or concerns regarding this plan of care. Physician Signature:__ Date:
--- NOTE | 2022-11-24 08:49 | HP.PTDCSUM_ITS ---
It has been my pleasure to treat TRUPTI MIRELES referred by BING OlsonM, with the diagnosis of Achilles tendonitis s/p surgery for clean out bone spur 08/29 for a total of 19 visit(s). Discharge Date: 11/24/22 Please see the following information for a summary of their discharge status. Subjective: Going the right way. Satarted on prednisone last week and has helped swelling alot and will be on it for a week. No pain over weekend. Avoided rabbit shows as did nto tolerate them last weekend. Life is normal otherwise. still stretches and strengthenss with GTB at home. 3x15 each direction 2-3x/day, also stretching. No more boot needed. sleep is OK unless it is really hurting, swells at night sometimes and hurts. to doctor in 3 weeks . Was 70% last weekend but 90% this weekend. L achilles Pain Intensity (Out of 10): 0 % Improvement: 90 Objective/Function: Avoids push off initially with L when getting out of chair, improving slihgtly as she walks further. Descending steps without rail but lands on L heel vss forefoot. 5 degrees DF L and 55 PF today. Tender min medial L calcaneus. overall much better. Will continue HEP and f/u with doctor in 3 weeks. Goal 1:: ST: AROM 4 DF and 50 PF to aid with walking and steps Goal 2:: Pain 0-2/10 at all times Goal Progress: Goal Met Goal 3:: LT: Walk without AD I in community without gait deviations Goal 4:: Steps reciprocally without rail Goal Progress: boot holding back Goal 5:: Plan to return to work Goal Progress: 11/29 reduced shift Goal 6:: 64 score LEFS Goal Progress: Progressing Plan: d/c to HEP Discharge Comments: Pt to doctor in 3 weeks and will continue ex and gait training as tolerated in the meantime. If there are questions or concerns regarding this patient's physical therapy, please feel free to call me at [phone]. Thank you for the referral of this patient. Sincerely, Mandeep Pimentel, DPT, OCS, CSCS Balance/Gait/Functional tests - Balance/Special Test Scores Lower Extremity Functional Score: 59
== END 2022-11-24 13:24 | disposition home or self-care (01) ==
LOC: PT 08:00
PROVIDERS: Visit Provider Podiatrist
DX: M76.62 Achilles tendinitis, left leg (principal)
CPT/HCPCS: 97014; 97110; 97162; 97164; 97530; G0283

== ENCOUNTER → 2022-12-23 | Outpatient (CLI) | payer OTHER, SELFPAY ==
[2022-12-23 18:20] LABS: Absolute Lymphocyte Count 1.84 X10^3/uL (0.83-4.51); Absolute Neutrophil Count 4.3 X10^3/uL (2.0-7.7); Basophil# 0.03 X10^3/uL; Basophil% 0.5 % (0-1); Eosinophil# 0.04 X10^3/uL; Eosinophils% 0.6 % (0-5); Hematocrit 41.9 % (37-47); Hemoglobin 13.7 g/dL (12.0-15.0); Lymphocyte # 1.84 X10^3/ul (0.83-4.51); Mean Corp Hgb Conc 32.7 g/dL (32-36); Mean Corpuscular Hgb 30.4 pg (27.0-32.0); Mean Corpuscular Volume 92.9 fL (81-99); Monocyte# 0.37 X10^3/uL; Monocyte% 5.6 % (0-10); NRBC Flagged by Analyzer 0 % (0-5); Neutrophil # 4.27 X10^3/uL (2.7-7.7); Neutrophil % 65.1 % (47-70); Platelet Count 278 K/mm3 (150-450); RBC Distribution Width CV 13.1 % (11.6-14.6); RBC Distribution Width SD 44.5 fl (35.1-43.9); Red Blood Count 4.51 M/mm3 (4.2-5.4); White Blood Count 6.6 K/mm3 (4.4-11.0)
[2022-12-23 19:05] LABS: Hemoglobin A1c 5.4 % (3.8-5.6)
[2022-12-23 19:07] LABS: Cholesterol 191 mg/dL (200); Free T3 2.6 pg/mL (2.18-3.98); High Density Lipoprotein 37 mg/dL; T4 Free Direct 0.93 ng/dL (0.76-1.46); Thyroid Stim Hormone (TSH) 2.47 uIU/mL (0.358-3.74); Triglycerides 190 mg/dL; Very Low Density Lipoprotein 38 mg/dL (5-40)
[2022-12-23 19:16] LABS: ALB/GLOB Ratio 1.1 RATIO (0.9-2.4); AST(SGOT) 17 U/L (15-37); Alanine Aminotransfer ALT/SGPT 27 U/L (13-56); Albumin, Serum 3.9 g/dL (3.2-5.0); Alkaline Phosphatase 105 U/L (45-117); Anion Gap 6 (5-15); BUN 16 mg/dL (7-18); BUN/Creat Ratio 17.3 RATIO (10-20); Chloride 109 mmol/L (98-107); Creatinine, Serum 0.92 mg/dL (0.55-1.02); EST Glomerular Filtration Rate 71 mL/min (>60); Est Glom Filt Rate - Afr Amer 86 mL/min (>60); Globulin 3.7 g/dL (2.2-4.2); Glucose 91 mg/dL (74-106); Potassium 4.2 mmol/L (3.5-5.1); Protein, Total 7.6 g/dL (6.4-8.2); Sodium Level 138 mmol/L (136-145)
[2022-12-25 15:08] LABS: Thyroglobulin Antibody < 1.0 IU/mL (0.0-0.9); Thyroid Peroxidase AB < 9 IU/mL (0-34)
== END | disposition home or self-care (01) ==
LOC: MTLAB 16:34
PROVIDERS: Family Medicine; PCP Family Medicine; Referring Provider Family Medicine; Visit Provider Family Medicine
DX: Z01.818 Encounter for other preprocedural examination (principal); Z13.29 Encounter for screening for other suspected endocrine disorder; Z13.0 Encounter for screening for diseases of the blood and blood-forming organs and certain disorders involving the immune mechanism; Z13.1 Encounter for screening for diabetes mellitus
CPT/HCPCS: 80053; 80061; 83036; 84439; 84443; 84481; 85025; 86376; 86800

== ENCOUNTER → 2022-12-29 | Outpatient (CLI) | payer OTHER, SELFPAY ==
--- NOTE | 2022-12-29 07:39 | BI_ITS ---
MAMMOGRAPHY - BILATERAL SCREENING REASON FOR EXAM: Female, 42 years old. Routine annual screening examination. PERTINENT HISTORY: Mother with breast cancer. Grandmother with breast cancer. TECHNIQUE: Digital bilateral breast franky (3D mammographic acquisition) in the CC and MLO projections. 2-D mediolateral oblique (MLO) and craniocaudad (CC) views of both breasts were obtained. CAD: Full Field Digital Mammography with Computer Added Detection was performed. COMPARISON: None. Baseline examination. FINDINGS: Breast Composition: There are scattered areas of fibroglandular density. There are no dominant masses or suspicious calcifications. Fat-containing bilateral axial lymph nodes. No other significant abnormalities are identified. BI/SCRN MAMM (CAD)W/FRANKY BILAT IMPRESSION: Negative screening mammogram. Yearly followup mammogram recommended. (A) ASSESSMENT CATEGORY: BIRADS Category 2: Benign. A letter regarding these results will be sent to the patient by the facility within 30 days. Approximately 10% of breast cancers are not detected by mammography. A normal mammogram should not delay biopsy of a clinically suspicious abnormality. [id number] Electronically Signed: Earnest Morataya MD at 8:52 EDT ,
== END | disposition home or self-care (01) ==
PROVIDERS: PCP Family Medicine; Referring Provider Family Medicine; Visit Provider Family Medicine
DX: Z12.31 Encounter for screening mammogram for malignant neoplasm of breast (principal)
CPT/HCPCS: 77063; 77067

== ENCOUNTER → 2023-07-03 | Outpatient (CLI) | payer OTHER, SELFPAY ==
--- NOTE | 2023-07-03 07:24 | MRI_ITS ---
STUDY: MRI LEFT ANKLE WITHOUT CONTRAST REASON FOR EXAM: Female, 42 years old. Heel/Achilles pain for one year. No relief after surgery. TECHNIQUE: Standardized fat and water weighted pulse sequences were obtained in all 3 orthogonal planes. COMPARISON: Left ankle MRI dated 05/10/2022. FINDINGS: There is mild tenosynovitis of the posterior tibialis, flexor digitorum longus, and flexor hallucis longus tendons. There is a type II accessory navicular. Normal peroneus longus and brevis tendons. Normal tibialis anterior tendon. Normal extensor hallucis longus tendon. Normal extensor digitorum longus tendons. There are new postoperative changes from Achilles tendon repair surgery with new anchors at the posterior calcaneal tuberosity. There is gradual thickening/tendinosis of the distal 5 cm of the distal Achilles tendon, measuring up to 1.7 cm in greatest AP thickness. There is no acute Achilles tendon tear. There is mild reactive marrow edema in the posterior calcaneal tuberosity (sagittal STIR series 8 image 11). Normal plantar fascia. There is a plantar calcaneal spur. Normal intrinsic muscles of the rearfoot. Normal distal tibiofibular syndesmotic ligamentous complex. Normal lateral ligamentous complex. Normal subtalar ligaments and sinus tarsi. Normal deltoid ligamentous complex. Normal plantar calcaneonavicular (spring) ligament. Normal tibiotalar articulation. Normal talar dome. Normal subtalar articulations. Normal talonavicular articulation. Normal calcaneocuboid articulation. Normal navicular-cuneiform articulations. MRI/Lower Ext Joint Only (Routine) IMPRESSION: Distal Achilles tendinosis, with no acute Achilles tendon tear. Mild reactive marrow edema in the posterior calcaneal tuberosity. Plantar calcaneal spur. Mild tenosynovitis of the posterior tibialis, flexor digitorum longus, and flexor hallucis longus tendons. Electronically Signed: Naeem Bain MD at 9:14 EST ,
== END | disposition home or self-care (01) ==
LOC: MRI 07:10
PROVIDERS: PCP Family Medicine; Referring Provider Podiatrist; Visit Provider Podiatrist
DX: M76.62 Achilles tendinitis, left leg (principal)
CPT/HCPCS: 73721